=== PATIENT | male | born 1940 | race Caucasian/White ===

== ENCOUNTER 2017-01-03 11:23 | Day surgery (SDC) | payer OTHER ==
[~2017-01-03] VITALS: Ht 177.8 cm; Wt 86.2 kg
--- NOTE | ~2017-01-03 | EGD ---
EGD REPORT [facility] [address] [place] [address] NAME: KAREL DALLAS : [birth year] STATUS : REG [facility]#: [id number] AGE: 76 ADM/REG DATE : 01/03/17 MR#: [id number] REPORT SERV DATE: 01/03/17 DICTATED BY: ALAYNA PRICE DATE: 01/03/17 REPORT STATUS : Draft [facility]ANSCRIBED BY: [facility] DATE: 01/03/17 Endoscopy Center Patient Name: Karel Dallas Date of : 1940 Attending MD: ALAYNA PRICE MD Procedure Date No Time: 01/03/2017 Procedure: Upper GI endoscopy Indications: Heartburn Referring MD: GABE HAMPTON Medicines: Monitored Anesthesia Care Complications: No immediate complications. Procedure: Pre-Anesthesia Assessment: - ASA Grade Assessment: IV - A patient with severe systemic disease that is a constant threat to life. After obtaining informed consent, the endoscope was passed under direct vision. Throughout the procedure, the patient's blood pressure, pulse, and oxygen saturations were monitored continuously. The GIF [id number] was introduced through the mouth, and advanced to the second part of duodenum. The upper GI endoscopy was accomplished without difficulty. The patient tolerated the procedure well. Findings: The examined esophagus was normal. A single 7 mm pedunculated polyp with no stigmata of recent bleeding was found in the cardia. Biopsies were taken with a cold forceps for histology. The duodenal bulb and 2nd part of the duodenum were normal. The cardia and gastric fundus were normal on retroflexion. Impression: - Normal esophagus. - A single gastric polyp. Biopsied. - Normal duodenal bulb and 2nd part of the duodenum. Recommendation: - Patient has a contact number available for emergencies. The signs and symptoms of potential delayed complications were discussed with the patient. Return to normal activities tomorrow. Written discharge instructions were provided to the patient. - Regular diet. - Continue present medications. - Await pathology results. - Follow an antireflux regimen. EGD REPORT [facility] [address] [place] [address] [address] [address] NAME: KAREL DALLAS : [birth year] STATUS : REG [facility]#: [id number] AGE: 76 ADM/REG DATE : 01/03/17 MR#: [id number] REPORT SERV DATE: 01/03/17 DICTATED BY: ALAYNA PRICE DATE: 01/03/17 REPORT STATUS : Draft TRANSCRIBED BY: [employer] DATE: 01/03/17 Procedure Code(s): --- Professional --- 41268, Esophagogastroduodenoscopy, flexible, transoral; with biopsy, single or multiple Diagnosis Code(s): --- Professional --- K31.7, Polyp of stomach and duodenum R12, Heartburn CPT copyright 2013 [employer]. All rights reserved. The codes documented in this report are preliminary and upon lawn and garden technician review may be revised to meet current compliance requirements. ALAYNA PRICE MD 01/03/2017 12:52 PM This report has been signed electronically. Number of Addenda: 0 Note Initiated On: 01/03/2017 12:39 PM Scope Withdrawal Time 0 hours 0 minutes [address] [place] [address]
--- NOTE | ~2017-01-03 | EGD ---
EGD REPORT [facility] [address] [address] NAME: KAREL DALLAS : [birth year] STATUS : REG [facility] PAT#: [id number] AGE: 76 ADM/REG DATE : 01/03/17 MR#: [id number] REPORT SERV DATE: 01/03/17 DICTATED BY: ALAYNA PRICE DATE: 01/03/17 REPORT STATUS : Draft TRANSCRIBED BY: [employer] DATE: 01/03/17 Endoscopy Center Patient Name: Karel Dallas Date of : 1940 Attending MD: ALAYNA PRICE MD Procedure Date No Time: 01/03/2017 Procedure: Colonoscopy Indications: Colon cancer screening in patient at increased risk: Colorectal cancer in father Referring MD: GABE HAMPTON Medicines: Monitored Anesthesia Care Complications: No immediate complications. Procedure: Pre-Anesthesia Assessment: - ASA Grade Assessment: IV - A patient with severe systemic disease that is a constant threat to life. After I obtained informed consent, the scope was passed under direct vision. Throughout the procedure, the patient's blood pressure, pulse, and oxygen saturations were monitored continuously. The [id number] was introduced through the anus and advanced to the cecum, identified by appendiceal orifice and ileocecal valve. The colonoscopy was performed without difficulty. The patient tolerated the procedure well. The quality of the bowel preparation was good. Findings: The digital rectal exam was normal. Pertinent negatives include no palpable rectal lesions. The terminal ileum appeared normal. A sessile polyp was found in the cecum. The polyp was 10 mm in size. The polyp was removed with a cold snare. Resection and retrieval were complete. Two sessile polyps were found in the descending colon. The polyps were 3 to 6 mm in size. These polyps were removed with a cold biopsy forceps. Resection and retrieval were complete. Hemorrhoids were found during retroflexion and were mild. Impression: - The examined portion of the ileum was normal. - One 10 mm polyp in the cecum. Resected and retrieved. - Two 3 to 6 mm polyps in the descending colon. Resected and retrieved. - Hemorrhoids. Recommendation: - Patient has a contact number available for emergencies. The signs and symptoms of potential delayed EGD REPORT [address] [place]. [address] NAME: KAREL DALLAS : [birth year] STATUS : REG [facility] PAT#: [id number] AGE: 76 ADM/REG DATE : 01/03/17 MR#: [id number] REPORT SERV DATE: 01/03/17 DICTATED BY: ALAYNA PRICE DATE: 01/03/17 REPORT STATUS : Draft [facility]ANSCRIBED BY: [facility] DATE: 01/03/17 complications were discussed with the patient. Return to normal activities tomorrow. Written discharge instructions were provided to the patient. - Regular diet. - Await pathology results. - Repeat colonoscopy in 3 - 5 years for surveillance based on pathology results. - Return to GI clinic PRN. Procedure Code(s): --- Professional --- 77220, Colonoscopy, flexible, proximal to splenic flexure; with removal of tumor(s), polyp(s), or other lesion(s) by snare technique 29383, 59, Colonoscopy, flexible, proximal to splenic flexure; with biopsy, single or multiple Diagnosis Code(s): --- Professional --- K64.9, Unspecified hemorrhoids D12.4, Benign neoplasm of descending colon D12.0, Benign neoplasm of cecum Z12.11, Encounter for screening for malignant neoplasm of colon Z80.0, Family history of malignant neoplasm of digestive organs CPT copyright 2013 [employer]. All rights reserved. The codes documented in this report are preliminary and upon mobile phone salesperson review may be revised to meet current compliance requirements. ALAYNA PRICE MD 01/03/2017 1:19 PM This report has been signed electronically. Number of Addenda: 0 Note Initiated On: 01/03/2017 12:41 PM Scope Withdrawal Time 0 hours 13 minutes 44 seconds [address] [place] [address]
[~2017-01-03 11:23] MED LIST: ALLEGRA PO; ALLEGRA180 PO; AMOXIL500C PO; ASA5GR PO; ASABAYER PO; AVANDIA4 PO; AVODART PO; CIPRODEX OT; CLARIT10 PO; CODEINE COUGH SYRUP PO; DIOV80 PO; DIOVAN40 MG PO; FLOMAX4 PO; FLONASE NAS; FLORINEF0.1 MG PO; FOLIC PO; GLUCOPHAGE1000 MG PO; GLUCOTRO10 PO; JANUMET1 TA1 PO; KEPPRA1000 MG PO; KLONO1 PO; KLOR-CON M2020 MEQ PO; LANTUS SC; LEVEMIR SC; LOP25 PO; MAGNESIUM PO; NEUR300 PO; NEUR600 PO; NORV10 PO; NORV5 PO; NOVOLOG SC; PRILO PO; PROAMAT5 PO; PROSCAR5 PO; REMERON30 MG PO; SIN25 PO; T PO; TRAZ50 PO; ULTRAM50 PO; ZANTAC150 MG PO; ZESTORETIC PO; ZOCOR20 PO; ZOCOR40 PO; ZOFRANODT8 PO; ZOL100 PO
== END 2017-01-03 23:59 | disposition home or self-care (01) ==
LOC: DMU 11:23
PROVIDERS: Internal Medicine Gastroenterology
PROC: 0DBH8ZX Excision of Cecum, Via Natural or Artificial Opening Endoscopic, Diagnostic (ICD-10-PCS; principal; 2017-01-03 12:30)
PROC: 0DBM8ZX Excision of Descending Colon, Via Natural or Artificial Opening Endoscopic, Diagnostic (ICD-10-PCS; 2017-01-03 12:30)
PROC: 0DB68ZX Excision of Stomach, Via Natural or Artificial Opening Endoscopic, Diagnostic (ICD-10-PCS; 2017-01-03 12:30)
DX: Z12.11 Encounter for screening for malignant neoplasm of colon (principal); D12.0 Benign neoplasm of cecum; D12.4 Benign neoplasm of descending colon; K64.9 Unspecified hemorrhoids; K29.50 Unspecified chronic gastritis without bleeding; G20 Parkinson's disease; E11.9 Type 2 diabetes mellitus without complications; N40.0 Benign prostatic hyperplasia without lower urinary tract symptoms; I25.2 Old myocardial infarction; I10 Essential (primary) hypertension; R56.9 Unspecified convulsions; Z80.0 Family history of malignant neoplasm of digestive organs; Z90.49 Acquired absence of other specified parts of digestive tract; Z98.890 Other specified postprocedural states
CPT/HCPCS: 82962; 88305